=== PATIENT | female | born 1945 | race Caucasian/White ===

== ENCOUNTER 2022-01-13 21:31 | Inpatient (IN) | payer MEDICARE ==
[2022-01-13] MEDS ORDERED: Ondansetron PF 4 MG/2 ML Vial IVP PRN (22:29)
[2022-01-13] MEDS ORDERED: Acetaminophen 325 MG TAB PO PRN (22:29)
[2022-01-13] MEDS ORDERED: Guaifenesin DM 100-10/5 ML UDCUP PO PRN (22:29)
[2022-01-13] MEDS ORDERED: Calcium Carbonate 500 MG ChewTAB PO PRN (22:29)
[2022-01-13] MEDS ORDERED: Magnesium Sulfate/D5W 1 GM/100 ML BAG IVPB SCH (23:00)
[2022-01-13] MEDS ORDERED: Metoprolol Tartrate 25 MG TAB PO SCH (23:15)
[2022-01-13 23:32] VITALS: BMI 38.4
[2022-01-14 05:02] LABS: Anion Gap 15 mmol/L (10-20); BUN (Urea Nitrogen) 28 mg/dL (9.8-20.1); Calc. Creatinine Clearance 76 mL/min (70-130); Calcium 10.1 mg/dL (7.8-10.44); Carbon Dioxide 23 mmol/L (23-31); Cardiac Risk 3.6 (Less than 4.5); Chloride 109 mmol/L (98-107); Cholesterol 134 mg/dl (< 200 Desired); Estimated GFR 56; Glucose 99 mg/dL (83-110); HDL Cholesterol 37 mg/dL (>60 Neg Risk); LDL Cholesterol, Calculated 53 mg/dL; Magnesium 2.1 mg/dL (1.6-2.6); Potassium 4.4 mmol/L (3.5-5.1); Sodium 143 mmol/L (136-145); Triglycerides 222 mg/dL (Less than 150)
[2022-01-14 05:30] LABS: CKMB 1.7 ng/mL (0-6.6)
[2022-01-14] MEDS: Aspirin 81 mg Enteric Coated Tablet PO SCH (08:56)
[2022-01-14] MEDS: Metoprolol Tartrate 25 MG TAB PO SCH ×2 (08:56→20:35)
[2022-01-14] MEDS: Losartan Potassium 50 MG TAB PO SCH (08:56)
[2022-01-14] MEDS ORDERED: Apixaban 5 MG TAB PO SCH (09:00)
[2022-01-14 09:47] LABS: CKMB 1.6 ng/mL (0-6.6)
[2022-01-14 11:03] LABS: Anion Gap 14 mmol/L (10-20); BUN (Urea Nitrogen) 25 mg/dL (9.8-20.1); Calc. Creatinine Clearance 74 mL/min (70-130); Calcium 9.8 mg/dL (7.8-10.44); Carbon Dioxide 24 mmol/L (23-31); Chloride 108 mmol/L (98-107); Estimated GFR 54; Glucose 164 mg/dL (83-110); Potassium 4.5 mmol/L (3.5-5.1); Sodium 141 mmol/L (136-145)
[2022-01-14 12:54] LABS: Hemoglobin A1c 5.7 % (4.0-6.0)
[2022-01-14] MEDS: Atorvastatin Calcium 20 MG TAB PO SCH (20:35)
[2022-01-14] MEDS: Enoxaparin Sodium 100 MG/ML SYRINGE SC SCH (20:35)
[2022-01-15 05:21] LABS: #Basophils 0.1 10x3/uL (0.0-0.2); #Eosinphils 0.1 10x3/uL (0.0-0.5); #Monocytes 0.6 10x3/uL (0.0-1.1); #Neutrophils 6.7 10x3/uL (1.5-8.4); %Basophils 0.7 % (0.0-2.0); %Eosinophils 1.1 % (0.0-6.0); %Lymphocytes 24.7 % (18.0-47.0); %Monocytes 6.3 % (0.0-10.0); %Neutrophils 66.9 % (40.0-75.0); Hemoglobin 11.7 g/dL (12.0-15.5); Mean Corpuscular HGB CONC 32.3 g/dL (32.0-36.0); Mean Corpuscular Hemoglobin 28.8 pg (27.0-33.0); Mean Corpuscular Volume 89.2 fl (81.6-98.3); Mean Platelet Volume 11.4 fl (7.4-10.4); Platelet Count 303 10x3/uL (150-450); RBC Distribution Width 12.6 % (11.5-14.5); Red Blood Cell (RBC) Count 4.06 10x6/uL (3.90-5.03)
[2022-01-15 05:31] LABS: Anion Gap 13 mmol/L (10-20); BUN (Urea Nitrogen) 19 mg/dL (9.8-20.1); Calc. Creatinine Clearance 82 mL/min (70-130); Carbon Dioxide 26 mmol/L (23-31); Chloride 105 mmol/L (98-107); Estimated GFR 61; Glucose 98 mg/dL (83-110); Potassium 4.5 mmol/L (3.5-5.1); Sodium 139 mmol/L (136-145)
[2022-01-15] MEDS: Losartan Potassium 50 MG TAB PO SCH ×2 (05:55→09:01)
[2022-01-15] MEDS: Metoprolol Tartrate 50 MG TAB PO SCH ×2 (09:01→20:31)
[2022-01-15] MEDS: Aspirin 81 mg Enteric Coated Tablet PO SCH (09:01)
[2022-01-15] MEDS: Enoxaparin Sodium 100 MG/ML SYRINGE SC SCH ×2 (09:01→20:31)
[2022-01-15] MEDS ORDERED: Amlodipine 5 MG TAB PO SCH (10:00)
[2022-01-15] MEDS: Atorvastatin Calcium 20 MG TAB PO SCH (20:31)
[2022-01-16] MEDS ORDERED: Amlodipine 5 MG TAB PO SCH (00:30)
[2022-01-16] MEDS ORDERED: Labetalol HCl 100 MG/20 ML VIAL SLOW IVP SCH (02:30)
[2022-01-16 06:56] LABS: #Basophils 0.1 10x3/uL (0.0-0.2); #Eosinphils 0.2 10x3/uL (0.0-0.5); #Monocytes 0.7 10x3/uL (0.0-1.1); #Neutrophils 4.4 10x3/uL (1.5-8.4); %Basophils 0.9 % (0.0-2.0); %Eosinophils 3.2 % (0.0-6.0); %Lymphocytes 28.9 % (18.0-47.0); %Monocytes 8.9 % (0.0-10.0); %Neutrophils 57.8 % (40.0-75.0); Hemoglobin 12.4 g/dL (12.0-15.5); Mean Corpuscular HGB CONC 32.5 g/dL (32.0-36.0); Mean Corpuscular Volume 89.2 fl (81.6-98.3); Mean Platelet Volume 10.6 fl (7.4-10.4); Platelet Count 317 10x3/uL (150-450); RBC Distribution Width 12.5 % (11.5-14.5); Red Blood Cell (RBC) Count 4.27 10x6/uL (3.90-5.03); White Blood Cell (WBC) Count 7.6 10x3/uL (3.5-10.5)
[2022-01-16 07:14] LABS: Anion Gap 16 mmol/L (10-20); BUN (Urea Nitrogen) 24 mg/dL (9.8-20.1); Calc. Creatinine Clearance 75 mL/min (70-130); Calcium 10.1 mg/dL (7.8-10.44); Carbon Dioxide 25 mmol/L (23-31); Chloride 105 mmol/L (98-107); Estimated GFR 55; Glucose 101 mg/dL (83-110); Potassium 4.6 mmol/L (3.5-5.1); Sodium 141 mmol/L (136-145)
[2022-01-16] MEDS: Enoxaparin Sodium 100 MG/ML SYRINGE SC SCH ×2 (08:53→20:21)
[2022-01-16] MEDS: Aspirin 81 mg Enteric Coated Tablet PO SCH (08:54)
[2022-01-16] MEDS: Amlodipine 5 MG TAB PO SCH (08:55)
[2022-01-16] MEDS: Metoprolol Tartrate 50 MG TAB PO SCH ×2 (08:55→20:18)
[2022-01-16] MEDS: Losartan Potassium 50 MG TAB PO SCH (08:55)
[2022-01-16] MEDS ORDERED: Communication Order-Pharmacy FS SCH (10:00)
[2022-01-16] MEDS: Atorvastatin Calcium 20 MG TAB PO SCH (20:18)
[2022-01-17] MEDS ORDERED: NIFEdipine XL 30 MG TAB PO SCH ×2 (00:45→09:00)
[2022-01-17] MEDS: Losartan Potassium 50 MG TAB PO SCH (05:27)
[2022-01-17] MEDS: Amlodipine 5 MG TAB PO SCH (05:27)
[2022-01-17] MEDS: Aspirin 81 mg Enteric Coated Tablet PO SCH (05:27)
[2022-01-17] MEDS: Metoprolol Tartrate 50 MG TAB PO SCH (05:27)
[2022-01-17] MEDS ORDERED: Sodium Chloride 0.9% 1,000 ML IV SCH (06:00)
[2022-01-17] MEDS ORDERED: Heparin 10,000 UNITS/ 10 ML VIAL ONE (06:06)
[2022-01-17] MEDS ORDERED: Nitroglycerin 50 MG/250 ML BOT 250 ML ONE (06:06)
[2022-01-17] MEDS ORDERED: Lidocaine 4% PF 5 ML AMP ONE (06:07)
[2022-01-17] MEDS ORDERED: Bivalirudin 250 MG VIAL ONE (06:07)
[2022-01-17] MEDS ORDERED: Verapamil 5 MG/2 ML VIAL ONE (06:07)
[2022-01-17] MEDS ORDERED: Adenosine 6 MG/2 ML VIAL ONE (06:07)
[2022-01-17] MEDS ORDERED: Fentanyl 100 MCG/2 ML VIAL ONE (06:43)
[2022-01-17] MEDS ORDERED: Midazolam HCl 2 mg/2 ml Vial ONE (06:43)
[2022-01-17] MEDS ORDERED: Nitroglycerin 0.4 MG TAB (25 Tab Bottle) SL PRN (07:33)
[2022-01-17] MEDS ORDERED: Acetaminophen/Codeine 30-300mg Tablet PO PRN ×2 (07:33)
[2022-01-17] MEDS ORDERED: hydrALAZINE 20 MG/ML VIAL SLOW IVP PRN (07:36)
[2022-01-17] MEDS ORDERED: Iopamidol 300 61% 100 ML VIAL FS ONE (08:39)
[2022-01-17] MEDS ORDERED: Iopamidol 300 61% 50 ML VIAL FS ONE (08:39)
[2022-01-17] MEDS ORDERED: Amiodarone 200 MG TAB PO SCH ×2 (09:00→17:15)
[2022-01-17] MEDS ORDERED: NIFEdipine XL 60 MG TAB PO SCH (09:00)
[2022-01-17 15:37] VITALS: BP 131/74; TEMP 97.6
[2022-01-18] MEDS ORDERED: Amiodarone 200 MG TAB PO SCH (09:00)
== END 2022-01-17 17:30 | disposition home or self-care (01) | DRG 282 ==
LOC: CSHTELE 21:31 → OBSVTOIN 01-17 10:08 → UNDODISIN 01-17 17:43
PROVIDERS: ADMIT Student in an Organized Health Care Education/Training Program; ATTEND Internal Medicine
PROC: 4A023N7 Measurement of Cardiac Sampling and Pressure, Left Heart, Percutaneous Approach (ICD-10-PCS; principal; 2022-01-17)
PROC: B2111ZZ Fluoroscopy of Multiple Coronary Arteries using Low Osmolar Contrast (ICD-10-PCS; 2022-01-17)
PROC: B2151ZZ Fluoroscopy of Left Heart using Low Osmolar Contrast (ICD-10-PCS; 2022-01-17)
DX: I48.0 Paroxysmal atrial fibrillation (principal); I21.A1 Myocardial infarction type 2; N18.9 Chronic kidney disease, unspecified; Z96.653 Presence of artificial knee joint, bilateral; E78.5 Hyperlipidemia, unspecified; R79.89 Other specified abnormal findings of blood chemistry; I12.9 Hypertensive chronic kidney disease with stage 1 through stage 4 chronic kidney disease, or unspecified chronic kidney disease; I25.10 Atherosclerotic heart disease of native coronary artery without angina pectoris; I35.0 Nonrheumatic aortic (valve) stenosis; E66.9 Obesity, unspecified; E11.65 Type 2 diabetes mellitus with hyperglycemia; Z20.822 Contact with and (suspected) exposure to COVID-19; Z98.890 Other specified postprocedural states; Z90.49 Acquired absence of other specified parts of digestive tract; Z86.73 Personal history of transient ischemic attack (TIA), and cerebral infarction without residual deficits; Z68.38 Body mass index [BMI] 38.0-38.9, adult
CPT/HCPCS: 36415; 36416; 80048; 80061; 82553; 83036; 83735; 84484; 85025; 93005; 93010; 93306; 93458; 96372; 96374; 96375; 99152; C1769; C1894; G0378; J0153; J0583; J1644; J1650; J2250; J3010; J3475; J7050; Q9967; U0003; U0005

== ENCOUNTER 2022-03-19 10:48 | Inpatient (IN) | payer MEDICARE, OTHER ==
[2022-03-19 11:43] VITALS: BMI 45.6
[2022-03-19] MEDS ORDERED: Ondansetron PF 4 MG/2 ML Vial IVP PRN (14:32)
[2022-03-19] MEDS ORDERED: Acetaminophen 325 MG TAB PO PRN (14:32)
[2022-03-19] MEDS ORDERED: Acetaminophen 650 MG Suppository PR PRN (14:32)
[2022-03-19] MEDS ORDERED: Ondansetron ODT 4 MG TAB PO PRN (14:32)
[2022-03-19] MEDS ORDERED: Insulin Regular 300 UNITS/3 ML VIAL SC PRN ×2 (14:34)
[2022-03-19] MEDS ORDERED: Dextrose 50% Abboject 50 ML SYRINGE SLOW IVP PRN (14:34)
[2022-03-19] MEDS ORDERED: Dextrose 5% in Water 1,000 ML IV PRN (14:34)
[2022-03-19] MEDS ORDERED: FLU VACC QS2022-23(65YR UP)/PF 240 MCG/0.7 ML SYRINGE IM ONE (17:00)
[2022-03-19] MEDS: Amiodarone 200 MG TAB PO SCH (21:28)
[2022-03-19] MEDS: Atorvastatin Calcium 20 MG TAB PO SCH (21:28)
[2022-03-19] MEDS: Metoprolol Tartrate 25 MG TAB PO SCH (21:29)
[2022-03-20 05:03] LABS: #Basophils 0.1 10x3/uL (0.0-0.2); #Eosinphils 0.1 10x3/uL (0.0-0.5); #Monocytes 0.7 10x3/uL (0.0-1.1); #Neutrophils 3.8 10x3/uL (1.5-8.4); %Basophils 0.9 % (0.0-2.0); %Lymphocytes 28.9 % (18.0-47.0); %Neutrophils 57.9 % (40.0-75.0); Hemoglobin 9.9 g/dL (12.0-15.5); Mean Corpuscular HGB CONC 31.8 g/dL (32.0-36.0); Mean Corpuscular Hemoglobin 29.2 pg (27.0-33.0); Mean Corpuscular Volume 91.7 fl (81.6-98.3); Mean Platelet Volume 12.8 fl (7.4-10.4); Platelet Count 221 10x3/uL (150-450); RBC Distribution Width 16.2 % (11.5-14.5); Red Blood Cell (RBC) Count 3.39 10x6/uL (3.90-5.03); White Blood Cell (WBC) Count 6.6 10x3/uL (3.5-10.5)
[2022-03-20 05:15] LABS: Anion Gap 13 mmol/L (10-20); BUN (Urea Nitrogen) 25 mg/dL (9.8-20.1); Calc. Creatinine Clearance 70 mL/min (70-130); Calcium 9.3 mg/dL (7.8-10.44); Carbon Dioxide 25 mmol/L (23-31); Chloride 107 mmol/L (98-107); Estimated GFR 41; Glucose 102 mg/dL (83-110); Potassium 3.6 mmol/L (3.5-5.1); Sodium 141 mmol/L (136-145)
[2022-03-20] MEDS ORDERED: Levothyroxine 150 MCG TAB PO SCH (06:30)
[2022-03-20] MEDS: Amiodarone 200 MG TAB PO SCH ×2 (08:19→22:22)
[2022-03-20] MEDS: Clopidogrel Bisulfate 75 MG TAB PO SCH (08:19)
[2022-03-20] MEDS: Metoprolol Tartrate 25 MG TAB PO SCH ×2 (08:19→22:21)
[2022-03-20] MEDS: Aspirin 81 mg Enteric Coated Tablet PO SCH (08:19)
[2022-03-20] MEDS: NIFEdipine XL 90 MG TAB PO SCH (08:19)
[2022-03-20] MEDS: Fenofibrate Nanocrystallized 145 MG TAB PO SCH (08:20)
[2022-03-20] MEDS: Atorvastatin Calcium 20 MG TAB PO SCH (22:21)
[2022-03-21] MEDS ORDERED: HYDROcodone/Acetaminophen 5/325 mg Tablet PO SCH ×2 (04:45→15:30)
[2022-03-21 05:19] LABS: #Basophils 0.1 10x3/uL (0.0-0.2); #Eosinphils 0.2 10x3/uL (0.0-0.5); #Monocytes 0.9 10x3/uL (0.0-1.1); #Neutrophils 6.2 10x3/uL (1.5-8.4); %Basophils 0.8 % (0.0-2.0); %Eosinophils 1.8 % (0.0-6.0); %Lymphocytes 15.8 % (18.0-47.0); %Monocytes 10.5 % (0.0-10.0); %Neutrophils 70.8 % (40.0-75.0); Hemoglobin 10.1 g/dL (12.0-15.5); Mean Corpuscular HGB CONC 32.4 g/dL (32.0-36.0); Mean Corpuscular Hemoglobin 29.7 pg (27.0-33.0); Mean Corpuscular Volume 91.8 fl (81.6-98.3); Mean Platelet Volume 12.6 fl (7.4-10.4); Platelet Count 210 10x3/uL (150-450); RBC Distribution Width 15.9 % (11.5-14.5); White Blood Cell (WBC) Count 8.8 10x3/uL (3.5-10.5)
[2022-03-21] MEDS: Levothyroxine Sodium 112 MCG TAB PO SCH (05:21)
[2022-03-21] MEDS: Levothyroxine Sodium 25 MCG TAB PO SCH (05:22)
[2022-03-21 05:26] LABS: Anion Gap 11 mmol/L (10-20); BUN (Urea Nitrogen) 27 mg/dL (9.8-20.1); Calc. Creatinine Clearance 67 mL/min (70-130); Calcium 9.5 mg/dL (7.8-10.44); Carbon Dioxide 23 mmol/L (23-31); Chloride 109 mmol/L (98-107); Estimated GFR 39; Glucose 106 mg/dL (83-110); Sodium 139 mmol/L (136-145)
[2022-03-21] MEDS: NIFEdipine XL 90 MG TAB PO SCH (08:27)
[2022-03-21] MEDS: Clopidogrel Bisulfate 75 MG TAB PO SCH (08:27)
[2022-03-21] MEDS: Amiodarone 200 MG TAB PO SCH ×2 (08:28→21:12)
[2022-03-21] MEDS: Fenofibrate Nanocrystallized 145 MG TAB PO SCH (08:28)
[2022-03-21] MEDS: Metoprolol Tartrate 25 MG TAB PO SCH ×2 (08:28→21:15)
[2022-03-21] MEDS: Aspirin 81 mg Enteric Coated Tablet PO SCH (08:28)
[2022-03-21] MEDS: NIFEdipine XL 60 MG TAB PO SCH (10:33)
[2022-03-21] MEDS ORDERED: Furosemide 40 MG TAB PO SCH (11:30)
[2022-03-21] MEDS ORDERED: HYDROcodone/Acetaminophen 5/325 mg Tablet PO PRN (19:14)
[2022-03-21] MEDS ORDERED: Gabapentin 100 MG CAP PO SCH (20:00)
[2022-03-21] MEDS: Atorvastatin Calcium 20 MG TAB PO SCH (21:11)
[2022-03-22 05:15] LABS: #Basophils 0.1 10x3/uL (0.0-0.2); #Eosinphils 0.2 10x3/uL (0.0-0.5); #Monocytes 0.7 10x3/uL (0.0-1.1); %Basophils 0.8 % (0.0-2.0); %Eosinophils 2.9 % (0.0-6.0); %Lymphocytes 31.6 % (18.0-47.0); %Monocytes 9.6 % (0.0-10.0); %Neutrophils 54.8 % (40.0-75.0); Hemoglobin 9.8 g/dL (12.0-15.5); Mean Corpuscular HGB CONC 31.6 g/dL (32.0-36.0); Mean Corpuscular Hemoglobin 29.1 pg (27.0-33.0); Mean Platelet Volume 12.7 fl (7.4-10.4); Platelet Count 214 10x3/uL (150-450); RBC Distribution Width 15.9 % (11.5-14.5); Red Blood Cell (RBC) Count 3.37 10x6/uL (3.90-5.03); White Blood Cell (WBC) Count 7.2 10x3/uL (3.5-10.5)
[2022-03-22 05:28] LABS: Anion Gap 14 mmol/L (10-20); BUN (Urea Nitrogen) 35 mg/dL (9.8-20.1); Calc. Creatinine Clearance 59 mL/min (70-130); Calcium 9.7 mg/dL (7.8-10.44); Carbon Dioxide 24 mmol/L (23-31); Chloride 106 mmol/L (98-107); Estimated GFR 34; Glucose 89 mg/dL (83-110); Potassium 3.7 mmol/L (3.5-5.1); Sodium 140 mmol/L (136-145)
[2022-03-22] MEDS ORDERED: Levothyroxine 150 MCG TAB PO SCH ×2 (06:30→07:30)
[2022-03-22] MEDS: Levothyroxine Sodium 25 MCG TAB PO SCH ×2 (07:22→07:29)
[2022-03-22] MEDS: Levothyroxine Sodium 112 MCG TAB PO SCH ×2 (07:22→07:29)
[2022-03-22] MEDS ORDERED: Furosemide 40 MG TAB PO SCH (07:30)
[2022-03-22] MEDS: Fenofibrate Nanocrystallized 145 MG TAB PO SCH (08:25)
[2022-03-22] MEDS: Aspirin 81 mg Enteric Coated Tablet PO SCH (08:25)
[2022-03-22] MEDS: Clopidogrel Bisulfate 75 MG TAB PO SCH (08:25)
[2022-03-22] MEDS: Amiodarone 200 MG TAB PO SCH (08:25)
[2022-03-22] MEDS: NIFEdipine XL 60 MG TAB PO SCH (08:25)
[2022-03-22] MEDS: Metoprolol Tartrate 25 MG TAB PO SCH (08:26)
[2022-03-22] MEDS ORDERED: Gabapentin 100 MG CAP PO SCH (09:00)
[2022-03-22 10:44] VITALS: TEMP 98.1
[2022-03-22 12:53] VITALS: BP 146/65
== END 2022-03-22 13:00 | disposition home or self-care (01) | DRG 291 ==
LOC: CSHTELE 10:48 → OBSVTOIN 03-20 14:10
PROVIDERS: ADMIT Family Medicine; ATTEND Family Medicine
DX: I13.0 Hypertensive heart and chronic kidney disease with heart failure and stage 1 through stage 4 chronic kidney disease, or unspecified chronic kidney disease (principal); I50.31 Acute diastolic (congestive) heart failure; N17.9 Acute kidney failure, unspecified; I25.10 Atherosclerotic heart disease of native coronary artery without angina pectoris; E03.9 Hypothyroidism, unspecified; E78.5 Hyperlipidemia, unspecified; Z96.653 Presence of artificial knee joint, bilateral; N18.9 Chronic kidney disease, unspecified; E11.22 Type 2 diabetes mellitus with diabetic chronic kidney disease; I48.0 Paroxysmal atrial fibrillation; E11.40 Type 2 diabetes mellitus with diabetic neuropathy, unspecified; Z88.8 Allergy status to other drugs, medicaments and biological substances; Z79.82 Long term (current) use of aspirin; Z79.899 Other long term (current) drug therapy; Z95.2 Presence of prosthetic heart valve; Z90.49 Acquired absence of other specified parts of digestive tract; Z98.890 Other specified postprocedural states
CPT/HCPCS: 36415; 36416; 80048; 84443; 84550; 85025; 93005; 93010; 93306; 94760; G0378

== ENCOUNTER 2023-08-26 14:54 | Inpatient (IN) | payer MEDICARE ==
[2023-08-26] MEDS ORDERED: Calcium Carbonate 500 MG ChewTAB PO PRN (16:33)
[2023-08-26] MEDS ORDERED: Glucagon 1 MG/ML KIT IM PRN (16:46)
[2023-08-26] MEDS ORDERED: HumaLOG 300 UNITS/3 ML VIAL SC PRN ×2 (16:46)
[2023-08-26] MEDS ORDERED: Dextrose 5% in Water 1,000 ML IV PRN (16:46)
[2023-08-26] MEDS ORDERED: Dextrose 50% Abboject 50 ML SYRINGE SLOW IVP PRN (16:46)
[2023-08-26 16:49] VITALS: BMI 32.3
[2023-08-26 17:54] LABS: Troponin I 0.058 ng/mL (< 0.028)
[2023-08-26] MEDS: Acetaminophen 325 MG TAB PO SCH (18:16)
[2023-08-26] MEDS: Lactated Ringer's 1,000 ML IV SCH (18:16)
[2023-08-26 20:35] LABS: Troponin I 0.059 ng/mL (< 0.028)
[2023-08-26] MEDS: Gabapentin 100 MG CAP PO SCH (20:57)
[2023-08-26] MEDS: Atorvastatin Calcium 20 MG TAB PO SCH (20:57)
[2023-08-26] MEDS: Famotidine/PF 20 mg/2ml Vial SLOW IVP SCH (20:58)
[2023-08-26] MEDS: Heparin 5,000 UNITS/ML VIAL SC SCH (20:58)
[2023-08-26] MEDS: Metoprolol Tartrate 25 MG TAB PO SCH (20:58)
[2023-08-26] MEDS ORDERED: Metoprolol Tartrate 25 MG TAB PO SCH (21:00)
[2023-08-27 05:28] LABS: #Basophils 0.05 10x3/uL (0.0-0.2); #Eosinphils 0.12 10x3/uL (0.0-0.5); #Monocytes 0.48 10x3/uL (0.0-1.1); %Basophils 0.8 % (0.0-2.0); %Lymphocytes 44.9 % (18.0-47.0); %Monocytes 8.1 % (0.0-10.0); %Neutrophils 43.7 % (40.0-75.0); Hematocrit 33.5 % (34.9-44.5); Hemoglobin 10.9 g/dL (12.0-15.5); Mean Corpuscular HGB CONC 32.5 g/dL (32.0-36.0); Mean Corpuscular Volume 92.3 fL (81.6-98.3); Mean Platelet Volume 12.8 fL (7.4-10.4); Platelet Count 270 10x3/uL (150-450); RBC Distribution Width 12.7 % (11.5-14.5); Red Blood Cell (RBC) Count 3.63 10x6/uL (3.90-5.03)
[2023-08-27] MEDS: NIFEdipine XL 60 MG ER.TAB PO SCH (05:37)
[2023-08-27 05:41] LABS: ALT (SGPT) 12 U/L (8-55); AST (SGOT) 32 U/L (5-34); Albumin 3.5 g/dL (3.4-4.8); Alkaline Phosphatase 34 U/L (40-110); Anion Gap 15 mmol/L (10-20); BUN (Urea Nitrogen) 29 mg/dL (9.8-20.1); Bilirubin, Total 0.6 mg/dL (0.2-1.2); Calc. Creatinine Clearance 37 mL/min (70-130); Calcium 9.5 mg/dL (7.8-10.44); Carbon Dioxide 21 mmol/L (23-31); Chloride 108 mmol/L (98-107); Estimated GFR 29; Globulin 2.9 g/dL (2.4-3.5); Glucose 88 mg/dL (83-110); Magnesium 2.1 mg/dL (1.6-2.6); Potassium 3.9 mmol/L (3.5-5.1); Protein, Total 6.4 g/dL (5.8-8.1); Sodium 140 mmol/L (136-145)
[2023-08-27] MEDS: Levothyroxine 150 MCG TAB PO SCH (05:45)
[2023-08-27] MEDS: Aspirin 81 mg Enteric Coated Tablet PO SCH (08:16)
[2023-08-27] MEDS: Fenofibrate Nanocrystallized 145 MG TAB PO SCH (08:16)
[2023-08-27] MEDS: Amiodarone 200 MG TAB PO SCH (08:16)
[2023-08-27] MEDS: Clopidogrel Bisulfate 75 MG TAB PO SCH (08:16)
[2023-08-27] MEDS: Sodium Bicarbonate Tab 325 MG TAB PO SCH (10:06)
[2023-08-27] MEDS: hydrALAZINE 25 MG TAB PO SCH ×2 (13:48→20:07)
[2023-08-27] MEDS: Ondansetron PF 4 MG/2 ML Vial IVP PRN (16:12)
[2023-08-27] MEDS ORDERED: Loperamide HCl 2 MG CAP PO PRN (16:20)
[2023-08-27] MEDS: Loperamide HCl 2 MG CAP PO SCH (16:39)
[2023-08-27] MEDS: hydrALAZINE 20 MG/ML VIAL SLOW IVP SCH (16:40)
[2023-08-27] MEDS: Prochlorperazine Edisylate 10 MG, Admixture Fee 1 EACH in Sodium Chloride 0.9% 50 ML IVPB SCH (18:09)
[2023-08-27] MEDS: Famotidine/PF 20 mg/2ml Vial SLOW IVP SCH (20:08)
[2023-08-27] MEDS: Acetaminophen 325 MG TAB PO SCH (20:26)
[2023-08-28 04:50] LABS: Anion Gap 15 mmol/L (10-20); BUN (Urea Nitrogen) 25 mg/dL (9.8-20.1); Calc. Creatinine Clearance 40 mL/min (70-130); Calcium 9.4 mg/dL (7.8-10.44); Carbon Dioxide 22 mmol/L (23-31); Chloride 109 mmol/L (98-107); Estimated GFR 32; Glucose 86 mg/dL (83-110); Potassium 4.2 mmol/L (3.5-5.1); Sodium 142 mmol/L (136-145)
[2023-08-28 04:54] LABS: #Basophils 0.06 10x3/uL (0.0-0.2); #Eosinphils 0.19 10x3/uL (0.0-0.5); #Monocytes 0.49 10x3/uL (0.0-1.1); #Neutrophils 3.26 10x3/uL (1.5-8.4); %Monocytes 7.8 % (0.0-10.0); %Neutrophils 51.6 % (40.0-75.0); Hematocrit 30.6 % (34.9-44.5); Hemoglobin 9.7 g/dL (12.0-15.5); Mean Corpuscular HGB CONC 31.7 g/dL (32.0-36.0); Mean Corpuscular Hemoglobin 29.5 pg (27.0-33.0); Mean Platelet Volume 13.3 fL (7.4-10.4); Platelet Count 225 10x3/uL (150-450); Red Blood Cell (RBC) Count 3.29 10x6/uL (3.90-5.03); White Blood Cell (WBC) Count 6.3 10x3/uL (3.5-10.5)
[2023-08-28] MEDS: Lactated Ringer's 1,000 ML IV SCH (19:36)
[2023-08-29 04:24] LABS: #Basophils 0.06 10x3/uL (0.0-0.2); #Eosinphils 0.19 10x3/uL (0.0-0.5); #Monocytes 0.53 10x3/uL (0.0-1.1); #Neutrophils 3.26 10x3/uL (1.5-8.4); %Basophils 0.9 % (0.0-2.0); %Eosinophils 2.9 % (0.0-6.0); %Lymphocytes 36.8 % (18.0-47.0); %Monocytes 8.2 % (0.0-10.0); %Neutrophils 50.6 % (40.0-75.0); Hematocrit 29.4 % (34.9-44.5); Hemoglobin 9.4 g/dL (12.0-15.5); Mean Corpuscular Hemoglobin 29.5 pg (27.0-33.0); Mean Corpuscular Volume 92.2 fL (81.6-98.3); Mean Platelet Volume 13.4 fL (7.4-10.4); Platelet Count 224 10x3/uL (150-450); RBC Distribution Width 13.2 % (11.5-14.5); Red Blood Cell (RBC) Count 3.19 10x6/uL (3.90-5.03); White Blood Cell (WBC) Count 6.5 10x3/uL (3.5-10.5)
[2023-08-29 04:36] LABS: Anion Gap 13 mmol/L (10-20); BUN (Urea Nitrogen) 26 mg/dL (9.8-20.1); Calc. Creatinine Clearance 39 mL/min (70-130); Calcium 9.3 mg/dL (7.8-10.44); Carbon Dioxide 22 mmol/L (23-31); Chloride 110 mmol/L (98-107); Estimated GFR 31; Glucose 85 mg/dL (83-110); Potassium 3.9 mmol/L (3.5-5.1); Sodium 141 mmol/L (136-145)
[2023-08-29] MEDS: Sodium Bicarbonate Tab 325 MG TAB PO SCH (10:05)
[2023-08-29] MEDS: Lactated Ringer's 1,000 ML IV SCH (10:14)
[2023-08-30 04:21] LABS: #Basophils 0.05 10x3/uL (0.0-0.2); #Eosinphils 0.22 10x3/uL (0.0-0.5); #Monocytes 0.48 10x3/uL (0.0-1.1); #Neutrophils 2.92 10x3/uL (1.5-8.4); %Basophils 0.8 % (0.0-2.0); %Eosinophils 3.7 % (0.0-6.0); %Lymphocytes 37.5 % (18.0-47.0); %Monocytes 8.1 % (0.0-10.0); %Neutrophils 49.6 % (40.0-75.0); Hematocrit 28.7 % (34.9-44.5); Hemoglobin 9.2 g/dL (12.0-15.5); Mean Corpuscular HGB CONC 32.1 g/dL (32.0-36.0); Mean Corpuscular Hemoglobin 29.8 pg (27.0-33.0); Mean Corpuscular Volume 92.9 fL (81.6-98.3); Mean Platelet Volume 13.2 fL (7.4-10.4); Platelet Count 220 10x3/uL (150-450); RBC Distribution Width 13.6 % (11.5-14.5); Red Blood Cell (RBC) Count 3.09 10x6/uL (3.90-5.03); White Blood Cell (WBC) Count 5.9 10x3/uL (3.5-10.5)
[2023-08-30 04:27] LABS: Anion Gap 12 mmol/L (10-20); BUN (Urea Nitrogen) 21 mg/dL (9.8-20.1); Calc. Creatinine Clearance 43 mL/min (70-130); Calcium 9.2 mg/dL (7.8-10.44); Carbon Dioxide 23 mmol/L (23-31); Chloride 111 mmol/L (98-107); Estimated GFR 35; Glucose 86 mg/dL (83-110); Sodium 142 mmol/L (136-145)
[2023-08-30 11:44] VITALS: BP 167/74; TEMP 98.5
== END 2023-08-30 15:30 | disposition home or self-care (01) | DRG 683 ==
LOC: CSHTELE 16:22
PROVIDERS: ADMIT Internal Medicine; ATTEND Internal Medicine
DX: N17.9 Acute kidney failure, unspecified (principal); I13.0 Hypertensive heart and chronic kidney disease with heart failure and stage 1 through stage 4 chronic kidney disease, or unspecified chronic kidney disease; I50.32 Chronic diastolic (congestive) heart failure; A08.4 Viral intestinal infection, unspecified; Z66 Do not resuscitate; E03.9 Hypothyroidism, unspecified; J06.9 Acute upper respiratory infection, unspecified; I48.0 Paroxysmal atrial fibrillation; E78.5 Hyperlipidemia, unspecified; I25.10 Atherosclerotic heart disease of native coronary artery without angina pectoris; N18.9 Chronic kidney disease, unspecified; E11.22 Type 2 diabetes mellitus with diabetic chronic kidney disease; R79.89 Other specified abnormal findings of blood chemistry; Z88.8 Allergy status to other drugs, medicaments and biological substances; Z79.84 Long term (current) use of oral hypoglycemic drugs; Z79.82 Long term (current) use of aspirin; Z79.890 Hormone replacement therapy
CPT/HCPCS: 36415; 36416; 80048; 80053; 83735; 85025; 94760; J0360; J0780; J1644; J2405; J7120; S0028

== ENCOUNTER 2024-03-23 17:53 | Inpatient (IN) | payer MEDICARE ==
[2024-03-23 18:50] LABS: #Basophils 0.03 10x3/uL (0.0-0.2); #Eosinophils 0.04 10x3/uL (0.0-0.5); #Monocytes 0.56 10x3/uL (0.0-1.1); #Neutrophils 4.64 10x3/uL (1.5-8.4); %Basophils 0.5 % (0.0-2.0); %Eosinophils 0.6 % (0.0-6.0); %Lymphocytes 19.2 % (18.0-47.0); %Monocytes 8.5 % (0.0-10.0); %Neutrophils 70.3 % (40.0-75.0); Hematocrit 34.5 % (34.9-44.5); Mean Corpuscular HGB CONC 31.9 g/dL (32.0-36.0); Mean Corpuscular Hemoglobin 27.9 pg (27.0-33.0); Mean Corpuscular Volume 87.6 fL (81.6-98.3); Mean Platelet Volume 12.6 fL (7.4-10.4); Platelet Count 296 10x3/uL (150-450); RBC Distribution Width 13.2 % (11.5-14.5); Red Blood Cell (RBC) Count 3.94 10x6/uL (3.90-5.03)
[2024-03-23] MEDS ORDERED: Ondansetron PF 4 MG/2 ML Vial ONE (18:52)
[2024-03-23 19:08] LABS: ALT (SGPT) 18 U/L (Less than 34); AST (SGOT) 40 U/L (11-34); Albumin 3.3 g/dL (3.1-4.5); Alkaline Phosphatase 48 U/L (40-110); Anion Gap 17 mmol/L (10-20); BUN (Urea Nitrogen) 32 mg/dL (9.8-20.1); Bilirubin, Total 1.2 mg/dL (0.3-1.2); Calc. Creatinine Clearance 0 mL/min (70-130); Calcium 9.9 mg/dL (7.8-10.44); Carbon Dioxide 24 mmol/L (23-31); Chloride 105 mmol/L (98-107); Estimated GFR 22; Globulin 3.3 g/dL (2.4-3.5); Glucose 127 mg/dL (83-110); Lipase 34 U/L (8-78); Potassium 3.5 mmol/L (3.5-5.1); Protein, Total 6.6 g/dL (5.8-8.1); Sodium 142 mmol/L (136-145)
[2024-03-23 20:56] LABS: Bilirubin 3+ (Negative); Blood, Urine 150 (Negative); Glucose, Urine (Dipstick) Normal (Negative); Ketone, Urine 5 mg/dL (Negative); Leukocyte 500 (Negative); Nitrite Negative (Negative); Protein, Urine (Dipstick) 500 mg/dl (Neg-Trace); Specific Gravity, Urine 1.025 (1.005-1.030)
[2024-03-23 21:17] LABS: Clarity Turbid (Clear)
[2024-03-23 21:57] LABS: CAUTI Indications for Culture Pelvic or flank pain; Squamous Epithelial 21-50 HPF (0-3); WBC/HPF 21-50 HPF (0-3)
[2024-03-23 21:58] LABS: Bacteria/HPF 4+ HPF (None Seen); Transitional Epithelial 0-3 HPF (None Seen)
[2024-03-23 22:01] LABS: Mucous/LPF 1+ LPF (<2+)
[2024-03-23 22:02] LABS: Urine Culture Reflex Yes Yes
[2024-03-23] MEDS ORDERED: Senokot S 8.6-50 MG TAB PO PRN (23:47)
[2024-03-23] MEDS ORDERED: Calcium Carbonate 500 MG ChewTAB PO PRN (23:47)
[2024-03-24 00:46] VITALS: BMI 28.1
[2024-03-24] MEDS ORDERED: Lactated Ringer's 1,000 ML IV SCH (01:00)
[2024-03-24] MEDS: cefTRIAXone\\ROCEPHIN 1 GM in Sodium Chloride 0.9% 100 ML IVPB SCH (01:17)
[2024-03-24] MEDS: Lactated Ringer's 1,000 ML IV SCH ×2 (01:17→09:15)
[2024-03-24] MEDS: Guaifenesin DM 100-10/5 ML UDCUP PO PRN (01:18)
[2024-03-24] MEDS: Pantoprazole 40 MG VIAL IVP SCH ×2 (01:18→08:26)
[2024-03-24 01:52] LABS: Bilirubin 3+ (Negative); Blood, Urine 50 (Negative); Clarity Cloudy (Clear); Glucose, Urine (Dipstick) Normal (Negative); Ketone, Urine 5 mg/dL (Negative); Leukocyte 500 (Negative); Nitrite Negative (Negative); Protein, Urine (Dipstick) 500 mg/dl (Neg-Trace)
[2024-03-24 02:02] LABS: WBC/HPF Greater Than 50 HPF (0-3)
[2024-03-24 02:03] LABS: Bacteria/HPF 4+ HPF (None Seen); Squamous Epithelial 21-50 HPF (0-3); Transitional Epithelial 0-3 HPF (None Seen)
[2024-03-24 03:48] LABS: #Basophils 0.04 10x3/uL (0.0-0.2); #Eosinophils 0.09 10x3/uL (0.0-0.5); #Monocytes 0.65 10x3/uL (0.0-1.1); #Neutrophils 3.25 10x3/uL (1.5-8.4); %Basophils 0.6 % (0.0-2.0); %Eosinophils 1.4 % (0.0-6.0); %Lymphocytes 35.6 % (18.0-47.0); %Monocytes 10.3 % (0.0-10.0); %Neutrophils 51.6 % (40.0-75.0); Hematocrit 30.3 % (34.9-44.5); Hemoglobin 9.9 g/dL (12.0-15.5); Mean Corpuscular HGB CONC 32.7 g/dL (32.0-36.0); Mean Corpuscular Hemoglobin 28.8 pg (27.0-33.0); Mean Corpuscular Volume 88.1 fL (81.6-98.3); Mean Platelet Volume 12.3 fL (7.4-10.4); Platelet Count 266 10x3/uL (150-450); RBC Distribution Width 13.4 % (11.5-14.5); Red Blood Cell (RBC) Count 3.44 10x6/uL (3.90-5.03)
[2024-03-24 04:04] LABS: Anion Gap 16 mmol/L (10-20); BUN (Urea Nitrogen) 36 mg/dL (9.8-20.1); Calc. Creatinine Clearance 22 mL/min (70-130); Calcium 9.4 mg/dL (7.8-10.44); Carbon Dioxide 23 mmol/L (23-31); Chloride 106 mmol/L (98-107); Estimated GFR 19; Glucose 91 mg/dL (83-110); Iron 59 ug/dL (50-170); Iron Binding Capacity, Total 185 mcg/dL (265-497); Potassium 3.3 mmol/L (3.5-5.1); Sodium 142 mmol/L (136-145)
[2024-03-24] MEDS: Gabapentin 100 MG CAP PO SCH (08:26)
[2024-03-24] MEDS: Citalopram 20 MG TAB PO SCH (08:28)
[2024-03-24] MEDS: Metoprolol Tartrate 25 MG TAB PO SCH (08:28)
[2024-03-24] MEDS: NIFEdipine XL 90 MG ER.TAB PO SCH (08:28)
[2024-03-24] MEDS: Amiodarone 200 MG TAB PO SCH (08:29)
[2024-03-24] MEDS ORDERED: GoLYTELY 4,000 ml Bottle PO SCH (16:00)
[2024-03-24] MEDS: Fenofibrate Nanocrystallized 145 MG TAB PO SCH (20:18)
[2024-03-24] MEDS: Atorvastatin Calcium 20 MG TAB PO SCH (20:19)
[2024-03-25] MEDS: Levothyroxine Sodium 25 MCG TAB PO SCH (06:05)
[2024-03-25] MEDS: Levothyroxine Sodium 112 MCG TAB PO SCH (06:06)
[2024-03-25 09:16] LABS: #Basophils Less than 0.03 10x3/uL (0.0-0.2); #Eosinophils 0.22 10x3/uL (0.0-0.5); #Monocytes 0.62 10x3/uL (0.0-1.1); #Neutrophils 3.11 10x3/uL (1.5-8.4); %Basophils 0.4 % (0.0-2.0); %Eosinophils 3.9 % (0.0-6.0); %Lymphocytes 30.1 % (18.0-47.0); %Monocytes 10.9 % (0.0-10.0); %Neutrophils 54.3 % (40.0-75.0); Hemoglobin 10.3 g/dL (12.0-15.5); Mean Corpuscular HGB CONC 32.2 g/dL (32.0-36.0); Mean Corpuscular Hemoglobin 28.3 pg (27.0-33.0); Mean Corpuscular Volume 87.9 fL (81.6-98.3); Mean Platelet Volume 12.8 fL (7.4-10.4); Platelet Count 254 10x3/uL (150-450); RBC Distribution Width 13.3 % (11.5-14.5); Red Blood Cell (RBC) Count 3.64 10x6/uL (3.90-5.03); White Blood Cell (WBC) Count 5.71 10x3/uL (3.5-10.5)
[2024-03-25 09:27] LABS: Anion Gap 15 mmol/L (10-20); BUN (Urea Nitrogen) 26 mg/dL (9.8-20.1); Calc. Creatinine Clearance 33 mL/min (70-130); Calcium 9.1 mg/dL (7.8-10.44); Carbon Dioxide 25 mmol/L (23-31); Chloride 105 mmol/L (98-107); Estimated GFR 31; Glucose 96 mg/dL (83-110); Potassium 3.7 mmol/L (3.5-5.1); Sodium 141 mmol/L (136-145)
[2024-03-25] MEDS: hydrALAZINE 20 MG/ML VIAL SLOW IVP SCH ×2 (12:29→18:03)
[2024-03-25 13:57] VITALS: BMI 28.1
[2024-03-25] MEDS ORDERED: PROPOFOL 20 ML ONE ×3 (15:50→16:15)
[2024-03-25] MEDS ORDERED: Lidocaine 1% PF 5 ML VIAL ONE ×2 (15:50→16:00)
[2024-03-25] MEDS ORDERED: PHENYLEPHRINE-NS 100 MCG/ML 10 ML SYRINGE ONE (16:03)
[2024-03-25] MEDS: NIFEdipine XL 90 MG ER.TAB PO SCH (18:01)
[2024-03-25] MEDS: Losartan 50 MG TAB PO SCH (18:03)
[2024-03-25] MEDS: Ondansetron PF 4 MG/2 ML Vial IVP PRN (20:35)
[2024-03-26 04:18] LABS: #Basophils 0.05 10x3/uL (0.0-0.2); #Eosinophils 0.17 10x3/uL (0.0-0.5); #Monocytes 0.61 10x3/uL (0.0-1.1); #Neutrophils 2.77 10x3/uL (1.5-8.4); %Basophils 0.8 % (0.0-2.0); %Eosinophils 2.8 % (0.0-6.0); %Monocytes 10.1 % (0.0-10.0); %Neutrophils 45.8 % (40.0-75.0); Hematocrit 28.2 % (34.9-44.5); Hemoglobin 9.1 g/dL (12.0-15.5); Mean Corpuscular HGB CONC 32.3 g/dL (32.0-36.0); Mean Corpuscular Hemoglobin 28.6 pg (27.0-33.0); Mean Corpuscular Volume 88.7 fL (81.6-98.3); Mean Platelet Volume 12.6 fL (7.4-10.4); Platelet Count 250 10x3/uL (150-450); RBC Distribution Width 13.8 % (11.5-14.5); Red Blood Cell (RBC) Count 3.18 10x6/uL (3.90-5.03); White Blood Cell (WBC) Count 6.05 10x3/uL (3.5-10.5)
[2024-03-26 04:28] LABS: Anion Gap 12 mmol/L (10-20); BUN (Urea Nitrogen) 22 mg/dL (9.8-20.1); Calc. Creatinine Clearance 38 mL/min (70-130); Calcium 8.7 mg/dL (7.8-10.44); Carbon Dioxide 26 mmol/L (23-31); Chloride 108 mmol/L (98-107); Estimated GFR 36; Glucose 92 mg/dL (83-110); Potassium 3.5 mmol/L (3.5-5.1); Sodium 142 mmol/L (136-145)
[2024-03-26] MEDS: NIFEdipine XL 90 MG ER.TAB PO SCH (08:42)
[2024-03-26] MEDS: Losartan 50 MG TAB PO SCH (08:43)
[2024-03-26] MEDS: hydrALAZINE 25 MG TAB PO SCH (10:00)
[2024-03-26] MEDS: Metoclopramide HCl 10 MG TAB PO SCH (11:19)
[2024-03-26] MEDS ORDERED: hydrALAZINE 25 MG TAB PO SCH (21:00)
[2024-03-26] MEDS: Acetaminophen 325 MG TAB PO PRN (21:13)
[2024-03-27 05:18] LABS: Platelet Count 218 10x3/uL (150-450)
[2024-03-27 05:19] LABS: #Basophils 0.05 10x3/uL (0.0-0.2); #Eosinophils 0.16 10x3/uL (0.0-0.5); #Monocytes 0.59 10x3/uL (0.0-1.1); #Neutrophils 2.69 10x3/uL (1.5-8.4); %Basophils 0.9 % (0.0-2.0); %Eosinophils 2.7 % (0.0-6.0); %Lymphocytes 39.9 % (18.0-47.0); %Monocytes 10.1 % (0.0-10.0); %Neutrophils 46.1 % (40.0-75.0); Hematocrit 29.2 % (34.9-44.5); Hemoglobin 9.3 g/dL (12.0-15.5); Mean Corpuscular HGB CONC 31.8 g/dL (32.0-36.0); Mean Corpuscular Hemoglobin 28.9 pg (27.0-33.0); Mean Corpuscular Volume 90.7 fL (81.6-98.3); Red Blood Cell (RBC) Count 3.22 10x6/uL (3.90-5.03); White Blood Cell (WBC) Count 5.84 10x3/uL (3.5-10.5)
[2024-03-27 05:21] LABS: Anion Gap 13 mmol/L (10-20); BUN (Urea Nitrogen) 25 mg/dL (9.8-20.1); Calc. Creatinine Clearance 28 mL/min (70-130); Calcium 9.2 mg/dL (7.8-10.44); Carbon Dioxide 25 mmol/L (23-31); Chloride 106 mmol/L (98-107); Estimated GFR 25; Glucose 91 mg/dL (83-110); Potassium 3.7 mmol/L (3.5-5.1); Sodium 140 mmol/L (136-145)
[2024-03-27 07:07] LABS: Mean Platelet Volume 13.6 fL (7.4-10.4)
[2024-03-27] MEDS: Losartan 50 MG TAB PO SCH (08:29)
[2024-03-27] MEDS: hydrALAZINE 20 MG/ML VIAL SLOW IVP PRN (10:39)
[2024-03-27] MEDS: hydrALAZINE 25 MG TAB PO SCH (15:08)
[2024-03-28 04:55] LABS: Platelet Count 215 10x3/uL (150-450)
[2024-03-28 04:56] LABS: #Basophils 0.06 10x3/uL (0.0-0.2); #Eosinophils 0.18 10x3/uL (0.0-0.5); #Monocytes 0.52 10x3/uL (0.0-1.1); #Neutrophils 3.29 10x3/uL (1.5-8.4); %Basophils 0.9 % (0.0-2.0); %Eosinophils 2.8 % (0.0-6.0); %Lymphocytes 37.4 % (18.0-47.0); %Neutrophils 50.4 % (40.0-75.0); Hematocrit 27.6 % (34.9-44.5); Hemoglobin 8.9 g/dL (12.0-15.5); Mean Corpuscular HGB CONC 32.2 g/dL (32.0-36.0); Mean Corpuscular Hemoglobin 28.9 pg (27.0-33.0); Mean Corpuscular Volume 89.6 fL (81.6-98.3); Mean Platelet Volume 13.6 fL (7.4-10.4); RBC Distribution Width 13.9 % (11.5-14.5); Red Blood Cell (RBC) Count 3.08 10x6/uL (3.90-5.03); White Blood Cell (WBC) Count 6.52 10x3/uL (3.5-10.5)
[2024-03-28 05:15] LABS: Anion Gap 13 mmol/L (10-20); BUN (Urea Nitrogen) 31 mg/dL (9.8-20.1); Calc. Creatinine Clearance 28 mL/min (70-130); Calcium 9.3 mg/dL (7.8-10.44); Carbon Dioxide 25 mmol/L (23-31); Chloride 108 mmol/L (98-107); Estimated GFR 25; Glucose 87 mg/dL (83-110); Potassium 3.9 mmol/L (3.5-5.1); Sodium 142 mmol/L (136-145)
[2024-03-28 08:29] VITALS: TEMP 96.8
[2024-03-28 09:36] VITALS: BP 163/88
== END 2024-03-28 09:37 | disposition home or self-care (01) | DRG 378 ==
LOC: CSHERS 17:53 → CSHTELE 23:28
PROVIDERS: ADMIT Student in an Organized Health Care Education/Training Program; ATTEND Internal Medicine
PROC: 0DBN8ZZ Excision of Sigmoid Colon, Via Natural or Artificial Opening Endoscopic (ICD-10-PCS; principal; 2024-03-25)
PROC: 0DB78ZX Excision of Stomach, Pylorus, Via Natural or Artificial Opening Endoscopic, Diagnostic (ICD-10-PCS; 2024-03-25)
DX: K29.71 Gastritis, unspecified, with bleeding (principal); I13.0 Hypertensive heart and chronic kidney disease with heart failure and stage 1 through stage 4 chronic kidney disease, or unspecified chronic kidney disease; I50.32 Chronic diastolic (congestive) heart failure; N17.9 Acute kidney failure, unspecified; K29.81 Duodenitis with bleeding; E78.5 Hyperlipidemia, unspecified; I48.0 Paroxysmal atrial fibrillation; N18.30 Chronic kidney disease, stage 3 unspecified; K64.4 Residual hemorrhoidal skin tags; K64.8 Other hemorrhoids; E11.40 Type 2 diabetes mellitus with diabetic neuropathy, unspecified; D63.8 Anemia in other chronic diseases classified elsewhere; N28.89 Other specified disorders of kidney and ureter; Z96.653 Presence of artificial knee joint, bilateral; F32.A Depression, unspecified; E11.51 Type 2 diabetes mellitus with diabetic peripheral angiopathy without gangrene; K63.5 Polyp of colon; K80.20 Calculus of gallbladder without cholecystitis without obstruction; I25.10 Atherosclerotic heart disease of native coronary artery without angina pectoris; Z88.8 Allergy status to other drugs, medicaments and biological substances; Z79.899 Other long term (current) drug therapy; Z90.49 Acquired absence of other specified parts of digestive tract; Z90.89 Acquired absence of other organs; Z98.891 History of uterine scar from previous surgery; Z98.41 Cataract extraction status, right eye; Z98.42 Cataract extraction status, left eye; E27.8 Other specified disorders of adrenal gland
CPT/HCPCS: 36415; 71045; 76700; 76770; 80048; 80053; 81001; 82088; 82274; 82728; 83540; 83550; 83690; 84244; 84443; 85025; 87086; 88305; 96374; J0360; J0696; J2405; J2470; J2704; J7120